=== PATIENT | female | born 1935 | race Two or more races ===

== ENCOUNTER → 2021-02-15 | Outpatient (CLI) | payer MEDICARE ==
[2020-12-23 15:31] VITALS: BP 188/70
--- NOTE | 2021-02-15 12:56 | RAD ---
CT ABDOMEN+PELVIS WO History: Chronic bladder infections. Comparison: None. Technique: CT of the abdomen and pelvis without contrast. Findings: Lower chest: 5 mm calcified right lower lobe granuloma. Right coronary artery calcification versus st ent. General abdomen: No ascites. No free air. Liver : Normal in size and attenuation. No masses seen. Gallbladder/Biliary Tree: Dependently layering cholelithiasis. No intrahepatic or extrahepatic biliar y ductal dilatation. Pancreas: Normal. Spleen: A few calcifications consistent with old granulomatous disease. Adrenal glands: Normal. Kidneys: No hydronephrosis or hydroureter. Left posterior renal cortex 1 cm cyst. Gastrointestinal: Extensive sigmoid diverticulosis. No evidence for diverticulitis. Lymph nodes: No lymphadenopathy. Vessels: Aorta iliac calcification without aneurysm. Pelvic Organs: Status post hysterectomy. No pelvic masses. The bladder is unremarkable. Soft tissues: Unremarkable. 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 Impression: 1. No etiology for urinary tract infection identified. 2. Cholelithiasis. 3. Extensive sigmoid diverticulosis. ------ Exposure: One or more of the following individualized dose reduction techniques were utilized for thi s examination: 1. Automated exposure control 2. Adjustment of the mA and/or kV according to patient size 3. Use of iterative reconstruction technique. Electronically signed by: Trey Mendoza MD (02/15/2021 12:54 PM) [facility]
== END ==
LOC: CT 10:49
PROVIDERS: ATTEND Specialist
DX: K57.30 Diverticulosis of large intestine without perforation or abscess without bleeding (principal); K80.20 Calculus of gallbladder without cholecystitis without obstruction; D73.89 Other diseases of spleen
CPT/HCPCS: 74176

== ENCOUNTER 2021-05-14 15:37 | Emergency (ER) | payer MEDICARE ==
[~2021-05-14] VITALS: Ht 149.9 cm; Wt 51.4 kg
--- NOTE | 2021-05-14 16:39 | PHYS DOC ---
Past History Past Surgical History: Appendectomy, Hysterectomy, Oophorectomy, Other Additional Past Surgical Histo: cardiac stent; total knee replacement right Alcohol Use: Occasionally General Adult EDM: Chief Complaint: ABDOMINAL PAIN HPI: HPI: Patient is a 86 year old female who presents with pain in her suprapubic area. Has been ongoing since February. Worse in the past few days. Has had recurrent bladder infections and was on a suppressive antibiotic until recently. Is no l onger taking the antibiotic. Unclear of the name of the antibiotic. Has had a work-up with urologist with cystoscopy that showed some irritation. Had a CT abdomen and pelvis on 02/15 that did not show any stones, bladder prolapse, or other findings to explain recurrent bladder infections. Over the past 2 days has had worsening suprapubic pain and dysuria. Concern for repeat infection. Review of Systems: Review of Systems: Constitutional: Denies fever or chills Eyes: Denies change in visual acuity HENT: Denies nasal congestion or sore throat Respiratory: Denies cough or shortness of breath Cardiovascular: Denies chest pain or edema GI: Denies abdominal pain, nausea, vomiting, bloody stools or diarrhea :+ dysuria, urgency, suprapubic pain Musculoskeletal: Denies back pain or joint pain Integument: Denies rash Neurologic: Denies headache, focal weakness or sensory changes Endocrine: Denies polyuria or polydipsia Lymphatic: Denies swollen glands Psychiatric: Denies depression or anxiety Allergies: Allergies: Allergies Coded Allergies Type Severity Reaction Last Updated Verified Sulfa (Sulfonamide Antibiotics) Allergy Intermediate 05/14/21 Yes Physical Exam: PE: Constitutional: Comfortable appearing. no acute distress, non-toxic appearance. [] HENT: Normocephalic, atraumatic, bilateral external ears normal, oropharynx moist, no oral exudates, nose normal. [] Eyes: PERRLA, EOMI, conjunctiva normal, no discharge. [] Neck: Normal range of motion, no tenderness, supple, no stridor. [] Cardiovascular:Heart rate regular rhythm, no murmur [] Lungs & Thorax: Bilateral breath sounds clear to auscultation [] Abdomen: soft, mild suprapubic ttp, no rebound. not peritoneal. : Normal appearance of external genitalia. No evidence of pelvic organ prolapse on exam. [] Skin: Warm, dry, no erythema, no rash. [] Neurologic: Alert and oriented X 3, normal motor function, normal sensory f unction, no focal deficits noted. [] Psychologic: Affect normal, judgement normal, mood normal. [] Current Patient Data: Vital Signs: Vital Signs Date Time Temp Pulse Resp B/P (MAP) Pulse Ox O2 Delivery O2 Flow Rate FiO2 05/14/21 15:53 98.1 65 18 178/86 96 Room Air EKG: EKG: [] Radiology/Procedures: Radiology/Procedures: [] Heart Score: C/O Chest Pain: No Risk Factors: Risk Factors: DM, Current or recent (<one month) smoker, HTN, HLP, family histo ry of CAD, obesity. Risk Scores: Score 0 - 3: 2.5% MACE over next 6 weeks - Discharge Home Score 4 - 6: 20.3% MACE over next 6 weeks - Admit for Clinical Observation Score 7 - 10: 72.7% MACE over next 6 weeks - Early Invasive Strategies Course & Med Decision Making: Course & Med Decision Making Pertinent Labs and Imaging studies reviewed. (See chart for details) Patient 86-year-old female with history of recurrent bladder infections, pelvic organ prolapse s/p surgical repair, who are presents with a few days of worsening dysuria and suprapubic pain. This is an acute worsening of a several months long chronic process. Is followed closely by Dr. Teran of urology. Has had CT imaging and cystoscopy so far as part of her work-up. CBC, CMP, UA ordered. We will check a pelvic exam, to ensure no evidence of pelvic organ prolapse she has a history of this in the past. [id number] UA shows signs of recurrent urinary tract infection. Sent for urine culture. No evidence of pelvic organ prolapse on exam. Do not feel repeat imaging will be helpful. No evidence of sepsis. WBC normal. No fever. Feel she can be safely managed as an outpatient with antibiotics. Will prescribe cefdinir. Plan to f/u with PCP and urologist. [id number] Disclaimer: Chiquita Disclaimer: This electronic medical record was generated, in whole or in part, using a voice recognition dictation system. Departure Departure: Impression: Primary Impression: Cystitis Disposition: HOME / SELF CARE / HOMELESS Condition: STABLE Referrals: MALLORY DAVID (PCP) Additional Instructions: For signs of recurrent urinary tract infection on your lab work. We will prescribe you a medication called cefdinir, this is an antibiotic. Please take the entire course as prescribed. Please follow-up with your primary care doctor and your urologist. If you develop high fevers, back pain, worsening abdominal pain, or other new/concerning symptoms you can return to the emergency department for reevaluation at any time. KEENA TORIBIO MD May 14, 2021 16:39
[2021-05-14 17:36] LABS: BASO % 0 % (0-3); EOS # 0.2 x10^3/uL (0.0-0.7); EOS % 3 % (0-3); HEMATOCRIT 34.4 % (36.0-47.0); HEMOGLOBIN 11.7 g/dL (12.0-15.5); LYMPH # 1.7 x10^3/uL (1.0-4.8); LYMPH % 24 % (24-48); MEAN CORPUSCULAR HEMOGLOBIN 29 pg (25-35); MEAN CORPUSCULAR HGB CONC 34 g/dL (31-37); MEAN CORPUSCULAR VOLUME 85 fL (79-100); MONO # 0.7 x10^3/uL (0.0-1.1); MONO % 10 % (0-9); NEUT # 4.4 x10^3uL (1.8-7.7); NEUT % 62 % (31-73); PLATELET COUNT 244 x10^3/uL (140-400); RED BLOOD COUNT 4.03 x10^6/uL (3.50-5.40); WHITE BLOOD COUNT 7.2 x10^3/uL (4.0-11.0)
[2021-05-14 17:43] LABS: CALCIUM 8.8 mg/dL (8.5-10.1); CREATININE 1.1 mg/dL (0.6-1.0); GFR 47.1; POTASSIUM 4.5 mmol/L (3.5-5.1)
[2021-05-14 17:48] LABS: BILIRUBIN,URINE NEG (NEG); CLARITY,URINE CLOUDY; COLOR,URINE YELLOW; GLUCOSE,URINE NEG (NEG); NITRITE,URINE NEG (NEG); UROBILINOGEN,URINE 0.2 mg/dL (0.2 mg/dL)
[2021-05-14 17:49] LABS: ALBUMIN 3.5 g/dL (3.4-5.0); BACTERIA,URINE MOD /HPF (0-FEW); RBC,URINE RARE /HPF (0-2); SQUAMOUS EPITHELIAL CELL,UR FEW /LPF; TOTAL BILIRUBIN 0.3 mg/dL (0.2-1.0); TOTAL PROTEIN 6.9 g/dL (6.4-8.2); WBC,URINE TNTC /HPF (0-4)
[2021-05-14] MEDS ORDERED: CEFD300C PO (17:57)
[2021-05-14] MEDS ORDERED: CEFDINIR 300 MG CAPSULE PO ONE (18:00)
[2021-05-14 18:27] VITALS: BP 157/79
== END 2021-05-14 19:10 | disposition home or self-care (01) ==
LOC: ER 15:37
DX: N30.90 Cystitis, unspecified without hematuria (principal); Z88.2 Allergy status to sulfonamides
CPT/HCPCS: 36415; 80053; 81001; 85025; 87086; 99283